=== PATIENT | male | born 1990 | race Hispanic/Latino ===

== ENCOUNTER 2018-04-28 09:07 | Day surgery (SDC) | payer BC ==
[2018-04-27 14:40] VITALS: BMI 35.2
[2018-04-28 09:41] VITALS: RESP 20; O2SAT 97
[2018-04-28] MEDS ORDERED: Lactated Ringer's 1,000 ML IV ONE (09:49)
[2018-04-28] MEDS ORDERED: Povidone Iodine 5% Opht SOLUTION ONE (13:06)
[2018-04-28] MEDS ORDERED: Tetracaine 0.5% Ophth 2 ML BOTTLE ONE (13:06)
[2018-04-28] MEDS ORDERED: STERILE IRRIGATING SOLUTION 30 ML IR ONE (13:06)
[2018-04-28] MEDS ORDERED: Lidocaine 1% w Epi 1:100,000 Inj ONE (13:06)
[2018-04-28] MEDS ORDERED: Maxitrol Opht Susp ONE (13:06)
[2018-04-28] MEDS ORDERED: Midazolam 2 MG/2 ML VIAL ONE (13:58)
[2018-04-28 14:59] VITALS: BP 130/77; PULSE 57; TEMP 98
[2018-04-28] MEDS ORDERED: Tetanus/Diphtheria Toxoids 0.5 ml Syringe IM ONE ×2 (15:01→15:27)
--- NOTE | 2018-05-19 22:12 | OP ---
Copied To: Braeden Sosa MD Attending MD: Braeden Sosa MD PROCEDURE DATE: 04/28/2018 SURGEON: Braeden Sosa MD ANESTHESIOLOGIST: Kulwinder Lemus MD ANESTHESIA: Local / IV Sedation PREOPERATIVE DIAGNOSIS: Scleral penetrating foreign body of the left eye. POSTOPERATIVE DIAGNOSIS: Scleral penetrating foreign body of the left eye. FINDINGS: Embedded metallic foreign body with a metal debris at the nasal sclera of the left eye. PROCEDURE: Exploration and removal of the embedded scleral foreign body with closure of the scleral wound and a conjunctivoplasty of the left eye. DESCRIPTION OF PROCEDURE: The patient was prepped and draped in the usual manner for sterile ophthalmic surgery. Under microsurgical control and after local anesthesia was applied, the conjunctiva was opened above the area of the foreign body. The foreign body was loosened and removed with forceps from the nasal sclera of the left eye. The foreign body was metallic in nature and was found to be embedded tangentially full thickness in the nasal sclera. After this was removed, the particles of metallic foreign body were also removed and flushed the surgical site. Hemostasis was obtained with pressure. The scleral wound was closed with interrupted 8-0 Vicryl suture. Subsequently, the conjunctiva was closed with interrupted 9-0 Vicryl suture. This terminated the procedure. Maxitrol ophthalmic suspension was applied to the eye. The patient was brought to postanesthesia recovery area with stable vital signs. Braeden Sosa MD MTDParul
== END 2018-04-28 15:30 | disposition home or self-care (01) ==
LOC: H.OPSURG 09:07
PROVIDERS: ATTEND Ophthalmology
DX: T15.82XA Foreign body in other and multiple parts of external eye, left eye, initial encounter (principal); W31.89XA Contact with other specified machinery, initial encounter
CPT/HCPCS: 65210; 65270; 90471; 90714; J2250; J3010; J7120